=== PATIENT | female | born 1990 ===

== ENCOUNTER 2018-02-07 19:33 | Emergency (ER) | payer MEDICAID ==
[~2018-02-07] VITALS: Ht 170.2 cm; Wt 53.1 kg
[2018-02-07 19:49] VITALS: BP 112/73
== END 2018-02-07 22:30 | disposition left against medical advice (07) ==
LOC: ER 19:34
DX: R53.1 Weakness (principal); Z53.21 Procedure and treatment not carried out due to patient leaving prior to being seen by health care provider